=== PATIENT | male | born 1955 | race Caucasian/White ===

== ENCOUNTER 2016-11-03 08:15 | Emergency (ER) | payer OTHER ==
[~2016-11-03] VITALS: Ht 180.3 cm; Wt 65.8 kg
--- NOTE | 2016-11-03 08:58 | ED GI/GU/ABDOMINAL COMPLAINT ---
History of Present Illness General Chief Complaint: Abdominal Pain/Flank Pain Stated Complaint: ABD PAIN Source: patient, family, old records Exam Limitations: no limitations Vital Signs & Intake/Output Vital Signs & Intake/Output Vital Signs Date Time Temp Pulse Resp B/P B/P Pulse O2 O2 Flow FiO2 Mean Ox Delivery Rate 11/03 1115 97.1 82 125/79 99 Room Air 11/03 0833 164/114 11/03 0819 96.7 67 20 98 Room Air Room Air Allergies Coded Allergies: No Known Allergies (11/03/16) Reconcile Medications Ibuprofen 600 MG TABLET 1 TAB PO Q6PRN PRN pain with food Ondansetron (Zofran Odt) 4 MG TAB.RAPDIS 1 TAB SL TID PRN nausea Oxycodone HCl/Acetaminophen (Percocet 5-325 MG Tablet) 5 MG-325 MG TABLET 1 TAB PO 4 TIMES/DAY PRN severe pain Tamsulosin HCl (Flomax) 0.4 MG CAP.ER.24H 1 CAP PO DAILY kidney stone Triage Note: TRIAGE: 61 Y/O MALE PRESENTS VIA AMBULANCE FOR C/O 8/10 RIGHT SIDED ABDOMINAL PAIN AND RIGHT SIDED FLANK PAIN SICNE 0600 THIS MORNING. +N/-V/-D. LAST BOWEL MOVEMENT YESTERDAY. AFEBRILE IN TRIAGE. DENIES HISTORY OF KIDNEY STONES. Triage Nurses Notes Reviewed? yes Onset: Just prior to arrival Duration: hour(s):, constant, continues in ED Timing: recent history Quality/Severity: aching, severe Location: right flank Radiation: no radiation Activities at Onset: none Prior Abdominal Problems: none Past Sexual History: Unobtainable at this time No Modifying Factors: none Associated Symptoms: abdominal pain, loss of appetite, nausea/vomiting HPI: 1-2 hours prior to admission patient complains of right flank pain severe nonradiating associated with nausea constant. He denies fever chills vomiting diarrhea chest pain cough shortness of breath headache dysuria rash bleeding. Past History Travel History Traveled to [place] past 21 day No Medical History Any Pertinent Medical History? see below for history Endocrine: hypothyroidism Surgical History Surgical History: non-contributory Psychosocial History What is your primary language Portuguese Tobacco Use: Never used ETOH Use: occasional use Illicit Drug Use: denies illicit drug use Family History Hx Contributory? No Review of Systems Review of Systems Constitutional: Reports: no symptoms. EENTM: Reports: no symptoms. Respiratory: Reports: no symptoms. Cardiovascular: Reports: no symptoms. GI: Reports: see HPI, abdominal pain, nausea. Genitourinary: Reports: no symptoms. Musculoskeletal: Reports: no symptoms. Skin: Reports: no symptoms. Neurological/Psychological: Reports: no symptoms. Hematologic/Endocrine: Reports: no symptoms. Immunologic/Allergic: Reports: no symptoms. All Other Systems: Reviewed and Negative Physical Exam Physical Exam General Appearance: well developed/nourished, alert, awake, anxious, severe distress Head: atraumatic, normal appearance Eyes: Bilateral: normal appearance, PERRL, EOMI, normal inspection. Ears, Nose, Throat, Mouth: hearing grossly normal, moist mucous membrane Neck: normal inspection, supple, full range of motion, normal alignment Respiratory: normal breath sounds, chest non-tender, no respiratory distress, quiet respiration, lungs clear Cardiovascular: regular rate/rhythm, normal peripheral pulses, norml femoral pulses equa Peripheral Pulses: 4+ carotid (R), 4+ carotid (L) Gastrointestinal: normal bowel sounds, soft, non-tender, no organomegaly Male Genitals: normal genitalia Back: normal inspection, normal range of motion Extremities: normal range of motion, no ligament instability Neurologic/Psych: no motor/sensory deficits, awake, alert, oriented x 3, normal gait, normal mood/affect Skin: intact, normal color, warm/dry Core Measures ACS in differential dx? No Severe Sepsis Present: No Septic Shock Present: No Progress Differential Diagnosis: appendicitis, biliary colic, pancreatitis, pyelonephritis, ureterolithiasis Plan of Care: Orders Procedure Date/time Status URINALYSIS 11/03 838 Complete LIPASE 11/03 838 Complete HIGH SENSITIVITY CRP 11/03 838 Complete COMPREHENSIVE METABOLIC PANEL 11/03 838 Complete CBC WITHOUT DIFFERENTIAL 11/03 838 Complete Laboratory Tests 11/03/16 1017: Urinalysis HEAVY H, Urine Color YEL, Urine Clarity CLDY H, Urine pH 8.5 H, Ur Specific Hubbard 1.020, Urine Protein NEG, Urine Ketones TRACE H, Urine Nitrite NEG, Urine Bilirubin NEG, Urine Urobilinogen 0.2, Ur Leukocyte Esterase NEG, Ur Microscopic SEDIMENT EXAMINED, Urine RBC 1-3, Urine WBC RARE, Urine Hemoglobin MOD H, Urine Glucose NEG 11/03/16 0904: Anion Gap 15, Estimated GFR > 60, BUN/Creatinine Ratio 19.1, Glucose 124 H, Calcium 9.7, Total Bilirubin 0.8, AST 25, ALT 41, Alkaline Phosphatase 69, C- React Prot High Sens 0.4 L, Total Protein 7.5, Albumin 4.7, Globulin 2.8, Albumin/Globulin Ratio 1.7, Lipase 28, CBC w Diff NO MAN DIFF REQ, RBC 5.13, MCV 89.7, MCH 30.7, RDW 13.1, MPV 8.1, Gran % 83.4 H, Lymphocytes % 11.2 L, Monocytes % 2.8, Eosinophils % 2.1, Basophils % 0.5, Absolute Granulocytes 9.0 H, Absolute Lymphocytes 1.2, Absolute Monocytes 0.3, Absolute Eosinophils 0.2, Absolute Basophils 0.1, PUBS MCHC 34.2 Diagnostic Imaging: Viewed by Me: Ultrasound. Discussed w/RAD: Ultrasound. Radiology Impression: Mild right hydronephrosis. Initial ED EKG: none Departure Departure Time of Disposition: 1218 Disposition: HOME OR SELF CARE Condition: Stable Clinical Impression Primary Impression: Renal colic on right side Referrals: DINA ALBERTO,SKYLER Leonard (PCP/Family) RIVAS NICHOLAS MD Call for urology follow up. Departure Forms: Customer Survey General Discharge Information Prescriptions: Current Visit Scripts Tamsulosin HCl (Flomax) 1 CAP PO DAILY #15 CAP Ibuprofen 1 TAB PO Q6PRN PRN pain #50 TAB with food Oxycodone HCl/Acetaminophen (Percocet 5-325 MG Tablet) 1 TAB PO 4 TIMES/DAY PRN severe pain #20 TAB Ondansetron (Zofran Odt) 1 TAB SL TID PRN nausea #15 TAB
[2016-11-03 09:20] LABS: ABSOLUTE BASOPHIL COUNT 0.1 /CUMM (0.0-0.2); ABSOLUTE EOSINOPHIL COUNT 0.2 /CUMM (0.0-0.7); ABSOLUTE LYMPH COUNT 1.2 /CUMM (1.2-3.4); ABSOLUTE MONOCYTE COUNT 0.3 /CUMM (0.10-0.60); BASOPHIL % 0.5 % (0.0-2.0); EOSINOPHIL % 2.1 % (0-5); MEAN CORPUSCULAR HGB 30.7 PG (27.0-31.0); MEAN CORPUSCULAR HGB CONC 34.2 G/DL (33.0-37.0); MEAN CORPUSCULAR VOLUME 89.7 FL (80.0-94.0); MEAN PLATELET VOLUME 8.1 FL (7.4-10.4); PLATELET COUNT 271 /CUMM (130-400); RBC DISTRIBUTION WIDTH 13.1 % (11.5-14.5); RED BLOOD CELL CT 5.13 /CUMM (4.70-6.10); WHITE BLOOD CELL COUNT 10.8 /CUMM (4.8-10.8)
[2016-11-03 09:41] LABS: GRANULOCYTE % 83.4 % (42.2-75.2)
[2016-11-03 11:15] VITALS: BP 125/79
--- NOTE | 2016-11-03 12:00 | ULTRASOUND REPORT ---
EXAMINATION: US ABDOMEN LIMITED CLINICAL INFORMATION: Right flank pain, nausea and vomiting. COMPARISON: None TECHNIQUE: Real-time imaging of the right upper quadrant abdominal viscera. FINDINGS: PANCREAS: Normal. LIVER: Normal. The liver demonstrates normal size, contour and echogenicity. No focal lesion or intrahepatic biliary duct dilatation. GALLBLADDER: Normal. The gallbladder is physiologically distended without evidence of stones, sludge, polyps, wall thickening or pericholecystic fluid. COMMON BILE DUCT: Normal in caliber measuring 0.3 cm in diameter. RIGHT KIDNEY: There is mild hydronephrosis. No renal calculi or focal parenchymal lesions. The kidney measures 11.6 cm in maximum dimension. FREE FLUID: None. IMPRESSION: Mild right hydronephrosis.
[2016-11-03] MEDS ORDERED: IBUPROFEN600 M1 PO ×2 (12:20→12:34)
[2016-11-03] MEDS ORDERED: PERCOCET 5-3251 EACH PO ×2 (12:20→12:34)
[2016-11-03] MEDS ORDERED: FLOMAX0.4 M1 PO ×2 (12:20→12:34)
[2016-11-03] MEDS ORDERED: ZOFRAN ODT4 M1 SL ×2 (12:20→12:34)
== END 2016-11-03 12:35 ==
LOC: ERH 08:15
PROVIDERS: Emergency Medicine
DX: N23 Unspecified renal colic (principal)
CPT/HCPCS: 81001; 96361; 96374; 96375; J1885; J2405; J2765